=== PATIENT | female | born 1985 | race African-American/Black ===

== ENCOUNTER 2016-10-03 18:05 | Emergency (ER) | payer MEDICARE, MEDICAID ==
[~2016-10-03] VITALS: Ht 162.6 cm; Wt 48.5 kg
[~2016-10-03 18:05] MED LIST: DOCU-109 PO; FOLI1TAB16 PO; HYDR2TAB31 PO; HYDR500C PO; LEVO750T31 PO; OXYC-328 PO
[2016-10-03] MEDS ORDERED: IV NORMAL SALINE 1000ML BAG 1,000 ML IV SCH (18:36)
[2016-10-03] MEDS ORDERED: HYDROmorphone 2 MG/ML VIAL IV ONE (18:45)
[2016-10-03 18:57] LABS: BILIRUBIN,URINE NEGATIVE (NEG); GLUCOSE,URINE NEGATIVE (NEG); NITRITE,URINE NEGATIVE (NEG); PROTEIN,URINE NEGATIVE (NEG-TRACE)
[2016-10-03 19:00] LABS: BASO # 0.1 x10^3/uL (0.0-0.2); BASO % 0 % (0-3); EOS % 1 % (0-3); HEMATOCRIT 25.5 % (36.0-47.0); HEMOGLOBIN 8.8 g/dL (12.0-15.5); LYMPH # 2.1 x10^3/uL (1.0-4.8); LYMPH % 12 % (24-48); MEAN CORPUSCULAR HEMOGLOBIN 35 pg (25-35); MEAN CORPUSCULAR HGB CONC 34 g/dL (31-37); MEAN CORPUSCULAR VOLUME 102 fL (79-100); MONO % 12 % (0-9); NEUT % 76 % (31-73); PLATELET COUNT 385 x10^3/uL (140-400); WHITE BLOOD COUNT 18.6 x10^3/uL (4.0-11.0)
[2016-10-03] MEDS ORDERED: diphenhydrAMINE 50 MG/ML VIAL IVP ONE (19:00)
[2016-10-03 19:01] LABS: RETIC COUNT 9.1 % (0.5-2.5)
[2016-10-03 19:03] LABS: BACTERIA,URINE 0 /HPF (0-FEW); RBC,URINE 0 /HPF (0-2); SQUAMOUS EPITHELIAL CELL,UR OCC /LPF; WBC,URINE 0 /HPF (0-4)
[2016-10-03 19:18] LABS: % BASOS 1 % (0-3); NUCLEATED RBC 7; PLT ESTIMATE ADEQUATE (ADEQUATE)
[2016-10-03 19:19] LABS: ANISOCYTOSIS SLIGHT; POIKILOCYTOSIS SLIGHT; POLYCHROMASIA PRESENT; SICKLE CELLS PRESENT
[2016-10-03 19:20] LABS: HOWELL-JOLLY BODIES PRESENT
[2016-10-03 19:32] LABS: CALCIUM 7.9 mg/dL (8.5-10.1); CREATININE 0.4 mg/dL (0.6-1.0); GFR 228.3; POTASSIUM 3.7 mmol/L (3.5-5.1)
[2016-10-03 19:38] LABS: ALBUMIN 3.4 g/dL (3.4-5.0); ALBUMIN/GLOBULIN RATIO 1.3 (1.0-1.7); TOTAL BILIRUBIN 1.6 mg/dL (0.2-1.0); TOTAL PROTEIN 6.1 g/dL (6.4-8.2)
[2016-10-03 19:48] VITALS: BP 115/60
--- NOTE | 2016-10-03 20:06 | PHYS DOC ---
Past Medical History Past Medical History: Asthma, Glaucoma, Sickle Cell Disease Past Surgical History: Cholecystectomy, , Tonsillectomy Additional Past Surgical Histo: Adenoidectomy Alcohol Use: Occasionally Drug Use: None Adult General Chief Complaint Chief Complaint: sickle cell pain HPI HPI Patient is a 31 year old female with sickle cell disease brought to the ED by her with the complaint of sickle cell pain which started yesterday. Patient complains of pain in both shoulders, both elbows, her pelvis and hips, and both knees. This is typical for sickle cell pain for the patient. She denies anything being unusual. She denies fever or chills to her knowledge. She has had similar episodes in the past and has been treated with IV fluids and IV pain medications. The patient states the only thing that is unusual is that she is currently having her second menstrual period this month. She does note some recent cough. No shortness of air. Patient has a primary care physician who is a hypoid gear tester here at [facility]. Patient does have a prescription for long-acting oxycodone 30 mg and short acting oxycodone 5 mg. She has taken those as directed today. Review of Systems Review of Systems Constitutional: Denies fever or chills [] HENT: Denies nasal congestion or sore throat [] Respiratory: Positive a little cough, negative shortness of breath Cardiovascular: Denies chest pain GI: Denies abdominal pain, nausea, vomiting, bloody stools or diarrhea [] : As in history of present illness Musculoskeletal: As in history of present illness Integument: Denies rash or skin lesions [] Neurologic: Denies headache, focal weakness or sensory changes [] Current Medications Current Medications Current Medications Medications (Trade) Dose Ordered Sig/Jj Start Time Stop Time Status Last Admin Dose Admin Diphenhydramine HCl (Benadryl) 25 mg 1X ONCE 10/03/16 19:00 10/03/16 19:01 DC 10/03/16 19:10 25 MG Hydromorphone HCl (Dilaudid) 1 mg 1X ONCE 10/03/16 18:45 10/03/16 18:46 DC 10/03/16 18:54 1 MG Sodium Chloride 1,000 ml @ 1,000 mls/hr Q1H 10/03/16 18:36 10/03/16 19:35 DC 10/03/16 18:54 1,000 MLS/HR Allergies Allergies Allergies Coded Allergies Type Severity Reaction Last Updated Verified morphine Allergy Intermediate Takes Dilaudid/Percocet at home 01/27/15 Yes pneumococcal vaccine Allergy Intermediate 01/06/14 Yes Physical Exam Physical Exam Constitutional: Thin 31-year-old female who appears drowsy but is appropriate and mentating normally, no dyspnea or other concerning appearance HENT: Normocephalic, atraumatic, bilateral external ears normal, nose normal. [ ] Eyes: conjunctiva normal, no discharge. [] Neck: Normal range of motion, no stridor. [] Cardiovascular:Heart rate regular rhythm, no murmur [] Lungs & Thorax: Bilateral breath sounds clear to auscultation, no rhonchi or consolidative changes Abdomen: Bowel sounds normal, soft, no tenderness, no masses, no pulsatile masses. [] Skin: Warm, dry, no erythema, no rash. [] Back: No tenderness, no CVA tenderness. [] Extremities: No tenderness, no cyanosis, no clubbing, ROM intact, no edema. [] Neurologic: Alert and oriented X 3, normal motor function, normal sensory function, no focal deficits noted. [] Current Patient Data Vital Signs Vital Signs Date Time Temp Pulse Resp B/P (MAP) Pulse Ox O2 Delivery O2 Flow Rate FiO2 10/03/16 18:54 Room Air 10/03/16 18:32 98.9 109 19 107/56 (73) 97 98.9 Lab Values Laboratory Tests Test 10/03/16 17:48 10/03/16 18:30 10/03/16 18:50 10/03/16 19:13 POC Urine HCG, Qualitative Hcg negative (Negative) Urine Collection Type Unknown Urine Color Yellow Urine Clarity Clear Urine pH 6.0 Urine Specific [place] <=1.005 Urine Protein Negative mg/dL (NEG-TRACE) Urine Glucose (UA) Negative mg/dL (NEG) Urine Ketones (Stick) Negative mg/dL (NEG) Urine Blood Negative (NEG) Urine Nitrite Negative (NEG) Urine Bilirubin Negative (NEG) Urine Urobilinogen Dipstick 1.0 mg/dL (0.2 mg/dL) Urine Leukocyte Esterase Negative (NEG) Urine RBC 0 /HPF (0-2) Urine WBC 0 /HPF (0-4) Urine Squamous Epithelial Cells Occ /LPF Urine Bacteria 0 /HPF (0-FEW) Urine Mucus Slight /LPF White Blood Count 18.6 x10^3/uL (4.0-11.0) H Red Blood Count 2.50 x10^6/uL (3.50-5.40) L Hemoglobin 8.8 g/dL (12.0-15.5) L Hematocrit 25.5 % (36.0-47.0) L Mean Corpuscular Volume 102 fL (79-100) H Mean Corpuscular Hemoglobin 35 pg (25-35) Mean Corpuscular Hemoglobin Concent 34 g/dL (31-37) Red Cell Distribution Width 18.0 % (11.5-14.5) H Platelet Count 385 x10^3/uL (140-400) Neutrophils (%) (Auto) 76 % (31-73) H Lymphocytes (%) (Auto) 12 % (24-48) L Monocytes (%) (Auto) 12 % (0-9) H Eosinophils (%) (Auto) 1 % (0-3) Basophils (%) (Auto) 0 % (0-3) Neutrophils # (Auto) 14.1 x10^3uL (1.8-7.7) H Lymphocytes # (Auto) 2.1 x10^3/uL (1.0-4.8) Monocytes # (Auto) 2.2 x10^3/uL (0.0-1.1) H Eosinophils # (Auto) 0.1 x10^3/uL (0.0-0.7) Basophils # (Auto) 0.1 x10^3/uL (0.0-0.2) Segmented Neutrophils % 73 % (35-66) H Band Neutrophils % 5 % (0-9) Lymphocytes % 12 % (24-48) L Monocytes % 9 % (0-10) Basophils % 1 % (0-3) Nucleated Red Blood Cells 7 Platelet Estimate Adequate (ADEQUATE) Polychromasia Present Poikilocytosis Slight Anisocytosis Slight Macrocytosis Slight Sickle Cells Present [place] Bodies Present Reticulocyte Count (auto) 9.1 % (0.5-2.5) H Sodium Level 145 mmol/L (136-145) Potassium Level 3.7 mmol/L (3.5-5.1) Chloride Level 108 mmol/L (98-107) H Carbon Dioxide Level 31 mmol/L (21-32) Anion Gap 6 (6-14) Blood Urea Nitrogen 5 mg/dL (7-20) L Creatinine 0.4 mg/dL (0.6-1.0) L Estimated GFR (Cockcroft-Gault) 228.3 BUN/Creatinine Ratio 13 (6-20) Glucose Level 103 mg/dL (70-99) H Calcium Level 7.9 mg/dL (8.5-10.1) L Total Bilirubin 1.6 mg/dL (0.2-1.0) H Aspartate Amino Transferase (AST) 68 U/L (15-37) H Alanine Aminotransferase (ALT) 77 U/L (14-59) H Alkaline Phosphatase 108 U/L (46-116) Total Protein 6.1 g/dL (6.4-8.2) L Albumin 3.4 g/dL (3.4-5.0) Albumin/Globulin Ratio 1.3 (1.0-1.7) Laboratory Tests 10/03/16 18:50 Laboratory Tests 10/03/16 19:13 EKG EKG [] Radiology/Procedures Radiology/Procedures One view portable chest x-ray read by me. Heart size slightly enlarged. Lung umana are clear. No infiltrate. No effusions. No pulmonary edema. [] Course & Med Decision Making Course & Med Decision Making Pertinent Labs and Imaging studies reviewed. (See chart for details) 31-year-old female brought to the ED by her with the complaint of pain that is typical for sickle cell pain for her. She states there is nothing unusual about this episode. states she usually does better with some IV fluids. The patient was given 1 L IV normal saline, IV Dilaudid and requested a dose of IV Benadryl for the itching. Labs showing leukocytosis at 18,000, anemia at 8.8, reticulocyte count adequate at 9. I reviewed previous labs for comparison. Usually, when patient comes in for treatment, she does have marked leukocytosis in the 18-20,000 range. This level of anemia is typical for her. Her retake count is also typical for her presentation. The patient was given a liter of fluids. I rechecked her and found her sleeping comfortably in the bed. I discussed lab values with her. Patient states "can I have something else for pain" and I advised her that she seems awfully sleepy and I would not recommend anything additional for pain IV at this time. She is agreeable to that. I had considered whether to give the patient some antibiotics, but I reviewed previous presentations and she usually does have marked leukocytosis and usually does not get antibiotics. She has no infection focus on exam or x-rays also her urinalysis is clear. I decided to not treat with antibiotics at this time for those reasons. [] Dragon Disclaimer Dragon Disclaimer This electronic medical record was generated, in whole or in part, using a voice recognition dictation system. Departure Departure Impression: Primary Impression: Sickle cell pain crisis Additional Impression: Leukocytosis Disposition: HOME, SELF-CARE Condition: STABLE Referrals: NO PCP (PCP) Patient Instructions: Sickle Cell Pain Crisis, [id number] Additional Instructions: Today in the ER, you had a liter of IV fluids, you had IV pain medication and IV Benadryl for itching. Continue to drink plenty of fluids. You may take your prescribed pain medicine as prescribed. No driving while taking this. If you have fever 100.4 higher, return or contact your doctor. Today, we did not find any source of infection and therefore will not treat with antibiotics at this time. Problem Qualifiers DARCY TREJO MD Oct 03, 2016 20:06
--- NOTE | 2016-10-04 08:45 | RAD ---
Indication sickle cell. Leukocytosis. A single view of the chest was obtained and is compared to a study 01/08/2016. The heart and pulmonary vessels are normal. The lungs are clear of acute infiltrates. There is no pleural fluid or pneumothorax. There are sclerotic changes involving both humeral heads suggesting osteonecrosis. IMPRESSION: No acute finding in the chest. Chronic changes about the shoulders
== END 2016-10-03 20:09 | disposition home or self-care (01) ==
LOC: ER 18:05
DX: D57.00 Hb-SS disease with crisis, unspecified (principal); D72.829 Elevated white blood cell count, unspecified; R05 Cough; H40.9 Unspecified glaucoma; J45.909 Unspecified asthma, uncomplicated; Z88.5 Allergy status to narcotic agent; Z88.7 Allergy status to serum and vaccine; Z90.49 Acquired absence of other specified parts of digestive tract
CPT/HCPCS: 36415; 71010; 80053; 81001; 81025; 85007; 85027; 85045; 96361; 96374; 96375; 99285; J1170; J1200; J7030

== ENCOUNTER 2017-01-04 10:00 | Emergency (ER) | payer MEDICAID, MEDICARE ==
[~2017-01-04] VITALS: Ht 154.9 cm; Wt 48.5 kg
[2017-01-04 10:12] VITALS: BP 131/76
[2017-01-04] MEDS ORDERED: AMOX500C PO (10:41)
--- NOTE | 2017-01-04 10:42 | PHYS DOC ---
Past Medical History Past Medical History: Asthma, Glaucoma, Sickle Cell Disease Past Surgical History: Cholecystectomy, , Tonsillectomy Additional Past Surgical Histo: Adenoidectomy Alcohol Use: Occasionally Drug Use: None Adult General Chief Complaint Chief Complaint: DENTAL PROBLEM HPI HPI Patient is a 31 year old female presents to the emergency department stating that she has had left lower dental pain and discomfort since this morning. She states that she has had increased swelling. Patient denies any fever, chills or any nausea vomiting. She denies any dental resources. Patient with negative trismus. Review of Systems Review of Systems Constitutional: Denies fever or chills [] Eyes: Denies change in visual acuity, redness, or eye pain [] HENT: Denies nasal congestion or sore throat. Left lower dental pain with swelling Respiratory: Denies cough or shortness of breath [] Cardiovascular: No additional information not addressed in HPI [] GI: Denies abdominal pain, nausea, vomiting, bloody stools or diarrhea [] : Denies dysuria or hematuria [] Musculoskeletal: Denies back pain or joint pain [] Integument: Denies rash or skin lesions [] Neurologic: Denies headache, focal weakness or sensory changes [] Endocrine: Denies polyuria or polydipsia [] Allergies Allergies Allergies Coded Allergies Type Severity Reaction Last Updated Verified morphine Allergy Intermediate Takes Dilaudid/Percocet at home 01/27/15 Yes pneumococcal vaccine Allergy Intermediate 01/06/14 Yes Physical Exam Physical Exam Constitutional: Well developed, well nourished, no acute distress, non-toxic appearance. [] HENT: Normocephalic, atraumatic, bilateral external ears normal, oropharynx moist, no oral exudates, nose normal. Bilateral TM normal, patient with swelling noted to the left lower jaw line. Tenderness noted at the # 21 and # 22. Eyes: PERRLA, EOMI, conjunctiva normal, no discharge. [] Neck: Normal range of motion, no tenderness, supple, no stridor. [] Cardiovascular:Heart rate regular rhythm, no murmur [] Lungs & Thorax: Bilateral breath sounds clear to auscultation [] Skin: Warm, dry, no erythema, no rash. [] Extremities: No tenderness, no cyanosis, no clubbing, ROM intact, no edema. [] Neurologic: Alert and oriented X 3, normal motor function, normal sensory function, no focal deficits noted. [] Psychologic: Affect normal, judgement normal, mood normal. [] Current Patient Data Vital Signs Vital Signs Date Time Temp Pulse Resp B/P (MAP) Pulse Ox O2 Delivery O2 Flow Rate FiO2 01/04/17 10:12 98.6 78 20 98 Room Air 98.6 EKG EKG [] Radiology/Procedures Radiology/Procedures [] Course & Med Decision Making Course & Med Decision Making Pertinent Labs and Imaging studies reviewed. (See chart for details) Patient will be discharged home with amoxicillin 1 tablet 4 times a day. Patient states that she has Percocet and hydrocodone at home in which she can take for pain and discomfort. Recommended ibuprofen every 8 hours in between the hydrocodone and Percocet. Patient will be provided with a dentist list. Recommended following up with them within the next week. Signs and symptoms to return back to emergency department as been provided. All questions and concerns been answered at patient's bedside. [] Dragon Disclaimer Dragon Disclaimer This electronic medical record was generated, in whole or in part, using a voice recognition dictation system. Departure Departure Impression: Primary Impression: Dental abscess Disposition: HOME, SELF-CARE Condition: STABLE Referrals: NO PCP (PCP) Patient Instructions: Dental Abscess Additional Instructions: Activity as tolerated Continue your home pain medication as needed Ibuprofen 600 mg every 8 hours with food, stop taking if you develop upset stomach Medications as prescribed Warm moist packs to the left jaw line Followup with a dentist within the week Return to the emergency department as needed for signs and symptoms that become worse. Scripts Amoxicillin (AMOXICILLIN) 500 Mg Capsule 1 CAP PO [id number], #40 CAP Prov: CHRISTIANNE SPEARS APRN 01/04/17 CHRISTIANNE SPEARS APRN Jan 04, 2017 10:41
[2017-01-04] MEDS ORDERED: FLUC150T PO (10:55)
== END 2017-01-04 10:45 | disposition home or self-care (01) ==
LOC: ER 10:00
DX: K04.7 Periapical abscess without sinus (principal); J45.909 Unspecified asthma, uncomplicated; Z88.5 Allergy status to narcotic agent; Z88.7 Allergy status to serum and vaccine
CPT/HCPCS: 99283

== ENCOUNTER 2019-05-07 17:38 | Emergency (ER) | payer MEDICAID, MEDICARE ==
[~2019-05-07] VITALS: Ht 165.1 cm; Wt 50.0 kg
[~2019-05-07 17:38] MED LIST changes: +AMOX500C PO; +FLUC150T PO; +MEDR2.5T28 PO; -OXYC-328 PO; +OXYC15TA61 PO; +OXYC1TAB22 PO
[2019-05-07 19:25] VITALS: BP 112/78
[2019-05-07] MEDS ORDERED: LIDOCAINE 2% VISCOUS 15 ML SOLUTION. SWSW STA (20:18)
[2019-05-07] MEDS ORDERED: MAG HYDROX/ALUMINUM HYD/SIMETH 30 ML ORAL.SUSP PO STA (20:18)
[2019-05-07] MEDS ORDERED: AMOX1TAB61 PO (20:23)
--- NOTE | 2019-05-07 20:23 | PHYS DOC ---
Past Medical History Past Medical History: Asthma, Glaucoma, Sickle Cell Disease (JUAQUIN VIEYRA APRN) Past Surgical History: Cholecystectomy, , Tonsillectomy Additional Past Surgical Histo: Adenoidectomy (JUAQUIN VIEYRA APRN) Smoking Status: Never Smoker Alcohol Use: Occasionally Drug Use: None (JUAQUIN VIEYRA APRN) Attending Signature I have participated in the care of this patient and I have reviewed and agree with all pertinent clinical information above including history, exam, and recommendations. (KOBY MORALES MD) Adult General Chief Complaint Chief Complaint: DENTAL PROBLEM HPI HPI Patient is a 33 year old female who presents with left jaw swelling has been ongoing for 2 days. The patient states that she's been having severe pain in her left lower jaw. The patient rates her pain 10 out of 10 in severity sharp. Denies any symptoms. Complete ROS were reviewed and found to be within normal limits, except as documented in the HPI (JUAQUIN VIEYRA APRN) Current Medications Current Medications Current Medications Medications (Trade) Dose Ordered Sig/Jj Start Time Stop Time Status Last Admin Dose Admin Al Hydroxide/Mg Hydroxide (Mylanta Plus Xs) 30 ml 1X STAT 05/07/19 20:18 2 20:23 DC 05/07/19 20:32 30 ML Lidocaine HCl (Viscous Lidocaine) 15 ml 1X STAT 05/07/19 20:18 05/07/19 20:23 DC 05/07/19 20:32 15 ML (KOBY MORALES MD) Allergies Allergies Allergies Coded Allergies Type Severity Reaction Last Updated Verified morphine Allergy Intermediate Takes Dilaudid/Percocet at home 01/27/15 Yes pneumococcal vaccine Allergy Intermediate 01/06/14 Yes (KOBY MORALES MD) Physical Exam Physical Exam Constitutional: Well developed, well nourished, no acute distress, non-toxic appearance. [] HENT: Normocephalic, atraumatic, bilateral external ears normal, oropharynx moist, no oral exudates, nose normal. Tooth # 17 is pushed foward and the gum appears erythematous. Eyes: PERRLA, EOMI, conjunctiva normal, no discharge. [] Neck: Normal range of motion, no tenderness, supple, no stridor. [] Neurologic: Alert and oriented X 3, normal motor function, normal sensory function, no focal deficits noted. [] Psychologic: Affect normal, judgement normal, mood normal. [] (JUAQUIN VIEYRA APRN) Current Patient Data Vital Signs Vital Signs Date Time Temp Pulse Resp B/P (MAP) Pulse Ox O2 Delivery O2 Flow Rate FiO2 05/07/19 19:25 98.1 64 16 112/78 (89) 98 Room Air 98.1 (KOBY MORALES MD) EKG EKG [] (JUAQUIN VIEYRA APRN) Radiology/Procedures Radiology/Procedures [] (JUAQUIN VIEYRA APRN) Course & Med Decision Making Course & Med Decision Making Pertinent Labs and Imaging studies reviewed. (See chart for details) Patient has a dental infection. Will put on Augmentin, give Dental balls and have follow up with dentist. (JUAQUIN IVEYRA APRN) Dragon Disclaimer Dragon Disclaimer This electronic medical record was generated, in whole or in part, using a voice recognition dictation system. (JUAQUIN VIEYRA APRN) Departure Departure Impression: Primary Impression: Pain due to dental caries Disposition: HOME, SELF-CARE Condition: STABLE Referrals: NO PCP (PCP) Patient Instructions: Carbamide Peroxide dental solution, Dental Caries Additional Instructions: Thank you for visiting [facility]. We appreciate you trusting us with your care. If any additional problems come up don't hesitate to return to visit us. Please follow up with your primary care provider so they can plan additional care if needed and know about the problem that you had. If symptoms worsen come back to the Emergency Department. Any concerning symptoms that start such as chest pain, shortness of air, weakness or numbness on one side of the body, running high fevers or any other concerning symptoms return to the ER. Scripts Amoxicillin/Potassium Clav (AUGMENTIN 875-125 TABLET) 1 Each Tablet 1 TAB PO BID for 10 Days, #20 TAB 0 Refills Prov: JUAQUIN VIEYRA APRN 05/07/19 JUAQUIN VIEYRA APRN May 07, 2019 20:23 KOBY MORALES MD May 07, 2019 22:13
== END 2019-05-07 20:35 | disposition home or self-care (01) ==
LOC: ER 17:38
DX: K02.9 Dental caries, unspecified (principal); K08.89 Other specified disorders of teeth and supporting structures; J45.909 Unspecified asthma, uncomplicated; Z88.5 Allergy status to narcotic agent; Z88.7 Allergy status to serum and vaccine
CPT/HCPCS: 99283